=== PATIENT | male | born 1985 | race Caucasian/White ===

== ENCOUNTER 2022-12-16 22:14 | Emergency (ER) | payer MEDICAID ==
[~2022-12-16] VITALS: Ht 170.2 cm; Wt 99.8 kg
[2022-12-16 22:30] VITALS: BP_SYST 136
--- NOTE | 2022-12-16 23:50 | NUR ---
ER examining patient in the triage room.
[2022-12-17] MEDS ORDERED: KETOROLAC TROMETHAMINE 30 MG VIAL IM ONE
--- NOTE | 2022-12-17 00:04 | NUR ---
Patient to [facility] for evaluation. Side rails up. Report given to BHAVIK ADAM.
--- NOTE | 2022-12-17 00:27 | NUR ---
PT BIB SELF FROM HOME, AMBULATED TO HALLWAY BED 1. PT A&Ox4, ABLE TO MAKE NEEDS KNOWN. PT C/O RIGHT HIP PAIN DUE TO A FALL. PT STATES HIS RIGHT LEG GAVE OUT AND HE FELL AND LANDED ON RIGHT HIP AROUND 1800. PT RATES PAIN 7/10. PT DESCRIBES PAIN SHARP AND THROBBING. PT DENIES TAKING MEDICATION FOR THE PAIN. PT DENIES N/V/D, SOB AND CHEST PAIN. PT DENIES FEVER AND CHILLS. PT STATES HE IS HIV POSITIVE, SUFFER FROM OSTEOPOROSIS AND ARTHRITIS. SAFETY PRECAUTIONS IN PLACE.
[2022-12-17] MEDS ORDERED: IBUP-1969 PO (01:15)
[2022-12-17 01:45] VITALS: BP_SYST 130
--- NOTE | 2022-12-17 01:48 | NUR ---
Patient given written and verbal discharge instructions and verbalizes understanding. ER DR HSU discussed with patient the results and treatment provided. Patient in stable condition. ID arm band removed. Rx of MOTRIN given. Patient educated on pain management and to follow up with PMD. Pain Scale 0/10. Opportunity for questions provided and answered. Medication side effect fact sheet provided.
== END 2022-12-17 01:45 | disposition home or self-care (01) ==
LOC: SED 22:14
DX: M54.50 Low back pain, unspecified (principal); M25.551 Pain in right hip; Z88.0 Allergy status to penicillin; Z79.899 Other long term (current) drug therapy
CPT/HCPCS: 99284; 72100; 73502; 96372; J1885